=== PATIENT | female | born 2000 | race Caucasian/White ===

== ENCOUNTER 2018-09-03 18:56 | Emergency (ER) | payer BC ==
[2018-09-03] MEDS ORDERED: Ketorolac Tromethamine 30 MG/ML VIAL ONE (20:27)
[2018-09-03] MEDS ORDERED: Metoclopramide HCl 10 MG/2 ML VIAL ONE ×2 (20:27→20:28)
[2018-09-03] MEDS ORDERED: diphenhydrAMINE 25 MG CAP ONE (20:29)
== END 2018-09-03 21:20 | disposition home or self-care (01) ==
LOC: ERS 18:56
DX: G43.909 Migraine, unspecified, not intractable, without status migrainosus (principal)
CPT/HCPCS: 96365; 96375; J1885; J2765